=== PATIENT | female | born 1980 | race African-American/Black ===

== ENCOUNTER 2019-02-12 15:43 | Emergency (ER) | payer BC ==
[~2019-02-12] VITALS: Ht 165.1 cm; Wt 90.7 kg
[2019-02-12 15:51] VITALS: BP 167/64
[2019-02-12] MEDS ORDERED: BACTRIM DS TAB1 EACH PO (16:26)
[2019-02-12] MEDS ORDERED: ULTRAM 50MG TAB50 MG PO (16:26)
== END 2019-02-12 17:14 | disposition home or self-care (01) ==
LOC: ER 15:43
DX: N75.1 Abscess of Bartholin's gland (principal); Z88.6 Allergy status to analgesic agent; Z88.5 Allergy status to narcotic agent

== ENCOUNTER 2020-10-29 09:30 | Emergency (ER) | payer BC ==
[~2020-10-29] VITALS: Ht 165.1 cm; Wt 88.5 kg
[~2020-10-29 09:30] MED LIST: BACTRIM DS TAB1 EACH PO; ULTRAM 50MG TAB50 MG PO
[2020-10-29 09:59] VITALS: BP 163/106
== END 2020-10-29 10:34 | disposition home or self-care (01) ==
LOC: ER 09:30
DX: J06.9 Acute upper respiratory infection, unspecified (principal); B97.89 Other viral agents as the cause of diseases classified elsewhere; Z79.899 Other long term (current) drug therapy; Z88.1 Allergy status to other antibiotic agents; Z88.5 Allergy status to narcotic agent; Z20.822 Contact with and (suspected) exposure to COVID-19